=== PATIENT | male | born 1980 | race Caucasian/White ===

== ENCOUNTER 2018-03-18 10:02 | Emergency (ER) | payer BC ==
[2018-03-18] MEDS: KETOROLAC 30 MG INJ IM (10:34)
== END 2018-03-18 13:54 | disposition home or self-care (01) ==
LOC: FTE 13:54
DX: S20.211A Contusion of right front wall of thorax, initial encounter (principal); W18.39XA Other fall on same level, initial encounter; Y92.9 Unspecified place or not applicable
CPT/HCPCS: 71100; 96372; 99284-25